=== PATIENT | female | born 1990 | race Caucasian/White ===

== ENCOUNTER 2022-12-29 14:27 | Emergency (ER) | payer OTHER, SELFPAY ==
[2022-12-29 14:30] VITALS: BP 121/88; PULSE 133; RESP 21; TEMP 36.4; O2SAT 94; BMI 30.8
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
--- NOTE | 2022-12-29 16:01 | ED.NURSE ---
Notified patient that chest XRay was negative.
== END 2022-12-29 16:02 | disposition home or self-care (01) ==
LOC: ED 15:12
PROVIDERS: Emergency Provider Student in an Organized Health Care Education/Training Program
DX: R07.81 Pleurodynia (principal)
CPT/HCPCS: 71101; 93005; 99282; 99283; 99284